=== PATIENT | female | born 1970 | race Caucasian/White ===

== ENCOUNTER → 2020-05-13 | Outpatient (CLI) | payer MEDICARE, OTHER | LOC: LAB 12:04 | DX: D89.89 Other specified disorders involving the immune mechanism, not elsewhere classified (principal); M25.50 Pain in unspecified joint; M32.9 Systemic lupus erythematosus, unspecified; Z92.29 Personal history of other drug therapy | CPT/HCPCS: 36415; 81001; 82570; 84156 ==

== ENCOUNTER → 2020-06-10 | Outpatient (CLI) | payer MEDICARE, OTHER | LOC: EXRD 10:57 | DX: M81.0 Age-related osteoporosis without current pathological fracture (principal); M85.88 Other specified disorders of bone density and structure, other site | CPT/HCPCS: 77080 ==

== ENCOUNTER → 2021-04-29 | Outpatient (CLI) | payer OTHER | LOC: OPSV 04-19 08:00 | DX: M05.9 Rheumatoid arthritis with rheumatoid factor, unspecified (principal); M19.91 Primary osteoarthritis, unspecified site; M81.0 Age-related osteoporosis without current pathological fracture; I10 Essential (primary) hypertension; E78.00 Pure hypercholesterolemia, unspecified; G35 Multiple sclerosis; M32.9 Systemic lupus erythematosus, unspecified; G43.909 Migraine, unspecified, not intractable, without status migrainosus | CPT/HCPCS: 96375; 96413; 96415; J2930; J7030; J9312 ==

== ENCOUNTER → 2021-05-13 | Outpatient (CLI) | payer OTHER ==
[~2021-05-13] VITALS: Ht 167.6 cm; Wt 79.4 kg
== END ==
LOC: OPSV 07:57
DX: M06.9 Rheumatoid arthritis, unspecified (principal); M19.90 Unspecified osteoarthritis, unspecified site
CPT/HCPCS: 96375; 96413; 96415; J2930; J7030; J9312

== ENCOUNTER → 2021-12-31 | Outpatient (CLI) | payer OTHER ==
[~2021-12-31] VITALS: Ht 167.6 cm; Wt 79.4 kg
== END ==
LOC: OPSV 08:00
DX: M81.0 Age-related osteoporosis without current pathological fracture (principal); M15.0 Primary generalized (osteo)arthritis; M06.09 Rheumatoid arthritis without rheumatoid factor, multiple sites; M35.01 Sjogren syndrome with keratoconjunctivitis; M47.816 Spondylosis without myelopathy or radiculopathy, lumbar region; K76.0 Fatty (change of) liver, not elsewhere classified
CPT/HCPCS: 96375; 96413; 96415; J2930; J7030; J9312